=== PATIENT | male | born 1995 | race Caucasian/White ===

== ENCOUNTER 2016-09-26 13:43 | Emergency (ER) | payer SELFPAY ==
--- NOTE | 2016-09-26 13:46 | PDOC ---
History of Present Illness - General Chief Complaint: Vomiting/Diarrhea Stated Complaint: N/V/D Time Seen by Provider: 09/26/16 13:46 History Source: Patient Exam Limitations: No Limitations - History of Present Illness Travel History: No Initial Comments: 09/26/16 13:55 This is a 21 yo M who presents to the ER with a complaint of nausea, vomiting, diarrhea and abdominal pain His symptoms began last night at 9pm Symptoms have steadily worsened No travel No ill contacts Vomiting times/day (non bloody, non bilious) Diarrha times/day (non bloody, non mucoid) No recent antibiotic use Denies fevers or chills PMH: denies PSH: denies Meds: denies Family history: Ulcerative Colitis ALL: NKDA Social: (+) 1/2 ppd x 8 years, alcohol socially, marijuana GENERAL/CONSTITUTIONAL: No: fever, chills, weakness, loss of appetite. HEAD, EYES, EARS, NOSE AND THROAT: No: change in vision, ear pain, discharge, sore throat, throat swelling. CARDIOVASCULAR: No: chest pain, lightheadedness, palpitations, syncope RESPIRATORY: No: cough, shortness of breath, wheezing, hemoptysis, stridor. GASTROINTESTINAL: Yes: nausea, vomiting, diarrhea, abdominal pain No:rectal bleeding, constipation. GENITOURINARY: No: dysuria, hematuria, frequency, urgency, flank pain. MUSCULOSKELETAL: No: back pain, neck pain, joint pain, muscle swelling or pain SKIN AND BREASTS: No: lesions, pallor, rash or easy bruising. NEUROLOGIC: No: headache, vertigo, paresthesias, weakness ENDOCRINE: No: unexplained weight gain or loss HEMATOLOGIC/LYMPHATIC: No: anemia, easy bleeding, swelling nodes. GENERAL: The patient is in no acute distress. HEAD: Normal with no signs of trauma. EYES: PERRLA, EOMI, sclera anicteric, conjunctiva clear. ENT: Ears normal, nares patent, oropharynx clear without exudates. (+) Moist mucous membranes. NECK: Normal range of motion, supple without lymphadenopathy, JVD, or masses. LUNGS: Breath sounds equal, clear to auscultation bilaterally. No wheezes, and no crackles. HEART:Regular rate and rhythm, normal S1 and S2 without murmur, rub or gallop. ABDOMEN: Soft, (+) tender to palpation in the periumbilical area and epigastrium , (+)Ignacio's, (+) McBurneys, No guarding, no rebound. EXTREMITIES: Normal range of motion, no edema. No clubbing or cyanosis. No erythema, or tenderness. NEUROLOGICAL: Cranial nerves II through XII grossly intact. Normal speech. No focal neurological deficits. MUSCULOSKELETAL: Back non-tender to palpation, no CVA tenderness SKIN: Warm, Dry, normal turgor, no rashes or lesions noted. Past History - Past Medical History Allergies/Adverse Reactions: Allergies Allergy/AdvReac Type Severity Reaction Status Date / Time No Known Allergies Allergy Verified 09/26/16 13:44 Home Medications: Ambulatory Orders Hyoscyamine Odt [Levsin Odt -] 0.125 mg PO DAILY PRN #7 tab.rapdis 09/26/16 Ondansetron HCl [Zofran] 4 mg PO BID PRN #10 tablet 09/26/16 ED Treatment Course - LABORATORY CBC & Chemistry Diagram: 09/26/16 14:01 09/26/16 14:01 Medical Decision Making - Medical Decision Making 09/26/16 14:06 21 yo M presenting with nausea, vomiting, diarrhea DD: gastroenteritis, gastritis, cholelithiasis/cholecystitis (less likely), will send basic labs Will give Zofran Will give Pepcid Will give IV fluids Will re assess 09/26/16 14:43 Laboratory Tests 09/26/16 09/26/16 14:01 14:01 WBC 8.8 Hgb 15.3 Hct 43.3 Plt Count 189 BUN 15 Creatinine 0.8 Total Bilirubin 0.6 AST 26 ALT 17 Lipase 31 Pt improved Upper abdominal pain is gone No lower abdominal tenderness Will discharge to home follow up with PMD and with mother's fashion buyer Clinical Impression: gastroenteritis *DC/Admit/Observation/Transfer Diagnosis at time of Disposition: Gastroenteritis, Smoking 1/2 pack a day or less - Discharge Dispostion Disposition: HOME Condition at time of disposition: Stable Admit: No - Prescriptions Prescriptions: Hyoscyamine Odt [Levsin Odt -] 0.125 mg PO DAILY PRN #7 tab.rapdis PRN Reason: abdominal pain Ondansetron HCl [Zofran] 4 mg PO BID PRN #10 tablet PRN Reason: Nausea - Patient Instructions Printed Discharge Instructions: DI for Viral Gastroenteritis -- Adult, Gastroenteritis Diet Additional Instructions: [place] Thank you for coming in to the ER today Please take medications as prescribed Please follow up with your primary care physician or your mother's fashion buyer for further work up of Ulcerative Colitis Please monitor yourself for lower abdominal tenderness Return to the ER for any other concerns or complaints
[2016-09-26 13:50] VITALS: BP 126/70; PULSE 64; TEMP 98; BMI 20.7
[2016-09-26] MEDS ORDERED: ONDANSETRON 4 MG/2 ML VIAL IVPUSH ONE (13:53)
[2016-09-26] MEDS ORDERED: SODIUM CHLORIDE 1,000 ML IV STA ×2 (13:53→14:34)
[2016-09-26] MEDS ORDERED: FAMOTIDINE 20 MG/50 ML IVPB 50 ML IVPB ONE ×2 (14:07→14:11)
[2016-09-26 14:25] LABS: EOSINOPHIL 1.8 % (0-4.5); MCH 32.1 pg (25.7-33.7); MCHC 35.3 g/dl (32.0-35.9); MEAN CELL VOLUME 90.8 fl (80-96); MEAN PLT VOLUME 9.8 fl (7.5-11.1); NEUTROPHILS 70.9 % (42.8-82.8); PLATELET COUNT 189 K/MM3 (134-434); RDW 12.2 % (11.9-15.9); WHITE BLOOD COUNT 8.8 K/mm3 (4.0-10.0)
[2016-09-26] MEDS ORDERED: HYOSCYAMINE SULFATE 0.125 MG *ODT PO ONE (14:34)
[2016-09-26] MEDS ORDERED: HYOSCYAMINE SULFATE 0.125 MG *ODT ONE (14:36)
[2016-09-26 14:38] LABS: ALBUMIN 4.6 g/dl (3.5-5.0); ALK PHOS 74 U/L (32-92); ANION GAP 5 (8-16); BILIRUBIN,TOTAL 0.6 mg/dl (0.2-1.0); CALCIUM 9.6 mg/dl (8.4-10.2); CO2 25 mmol/L (22-28); CREATININE 0.8 mg/dl (0.6-1.3); GLUCOSE,RANDOM 91 mg/dl (74-106); SGOT/AST 26 U/L (10-42); SGPT/ALT 17 U/L (10-40); TOT PROT 7.1 g/dl (6.4-8.3)
== END 2016-09-26 15:40 | disposition home or self-care (01) ==
LOC: FER 13:43
PROC: 3E033GC Introduction of Other Therapeutic Substance into Peripheral Vein, Percutaneous Approach (ICD-10-PCS; principal; 2016-09-26)
PROC: 3E0337Z Introduction of Electrolytic and Water Balance Substance into Peripheral Vein, Percutaneous Approach (ICD-10-PCS; 2016-09-26)
DX: K52.9 Noninfective gastroenteritis and colitis, unspecified (principal); F17.210 Nicotine dependence, cigarettes, uncomplicated
CPT/HCPCS: 36415; 80053; 83690; 85025; 99282-25

== ENCOUNTER 2017-05-05 04:36 | Emergency (ER) | payer SELFPAY ==
[2017-05-05 04:44] VITALS: BP 136/73; PULSE 70; TEMP 97.5; BMI 21.5
[2017-05-05] MEDS ORDERED: ONDANSETRON *ODT* 4 MG TABLET SL ONE (04:57)
[2017-05-05] MEDS ORDERED: ONDANSETRON *ODT* 4 MG TABLET ONE (04:57)
[2017-05-05] MEDS ORDERED: HEMOQUE TEST 1 EACH EACH ONE (04:57)
--- NOTE | 2017-05-06 01:05 | PDOC ---
History of Present Illness - General Chief Complaint: Nausea/Vomiting Stated Complaint: NAUSEA,STRESS AT HOME X 2 DAYS - History of Present Illness Initial Comments: This 21-year-old man with no previous significant medical history presents with a several day history of nausea with retching. The patient also describes difficulty sleeping in the last few days. Patient describes having a large amount of stress and his . He and his family are currently facing eviction from their home; he also has had some difficulty pain his bills. He is currently employed ([employer]) ; he currently has no insurance but insurance coverage will start in approximately of a month. He has had no fever or chills. He denies diarrhea/severe abdominal pain. He states that he has had several month history of drinking large amounts of fluids and urinating frequently. No dysuria or hematuria. No family history of diabetes mellitus. He states that he has a strong family history of "sensitive stomach", meaning that during times of stress, he and his family members have abdominal discomfort and frequent bowel movements. Patient is a one pack per day smoker; he denies alcohol or other recreational drug use Past History - Past Medical History Allergies/Adverse Reactions: Allergies Allergy/AdvReac Type Severity Reaction Status Date / Time No Known Allergies Allergy Verified 05/05/17 04:37 Home Medications: Ambulatory Orders Hyoscyamine Sulfate 0.125 mg SL TID PRN #12 tab.subl 05/05/17 Other medical history: DENIES - Suicide/Smoking/Psychosocial Hx Smoking History: Current every day smoker Have you smoked in the past 12 months: Yes Number of Cigarettes Smoked Daily: 20 Information on smoking cessation initiated: Yes 'Breaking Loose' booklet given: 05/05/17 Hx Alcohol Use: Yes (OCCAS) Drug/Substance Use Hx: Yes (WEED) Substance Use Type: None, Marijuana Review of Systems - Review of Systems Able to Perform ROS?: Yes Comments:: 12 point review of systems is negative except for what is noted in the history of present illness *Physical Exam - Vital Signs Last Vital Signs Temp Pulse Resp BP Pulse Ox 97.5 F L 70 16 136/73 100 05/05/17 04:39 05/05/17 04:39 05/05/17 04:39 05/05/17 04:39 05/05/17 04:39 - Physical Exam Comments: GENERAL: Young adult male, appearing anxious but in no acute distress HEAD: Normal with no signs of trauma. EYES: PERRLA, EOMI, sclera anicteric, conjunctiva clear. ENT: Ears normal, nares patent, oropharynx clear without exudates. Dry mucous membranes. NECK: Normal range of motion, supple without lymphadenopathy, JVD, or masses. LUNGS: Breath sounds equal, clear to auscultation bilaterally. No wheezes, and no crackles. HEART:Regular rate and rhythm, normal S1 and S2 without murmur, rub or gallop. ABDOMEN:.normal bowel sounds No guarding,tenderness or rebound.No masses No distention. EXTREMITIES: Normal range of motion, no edema. No clubbing or cyanosis. No erythema, or tenderness. NEUROLOGICAL: Cranial nerves II through XII grossly intact. Normal speech. No focal neurological deficits. MUSCULOSKELETAL: Back non-tender to palpation, no CVA tenderness SKIN: Warm, Dry, normal turgor, no rashes or lesions noted. Random fingerstick glucose 140 ED Treatment Course - Medications Given in the ED: ED Medications Discontinued Medications Generic Name Dose Route Start Last Admin Trade Name Freq PRN Reason Stop Dose Admin Ondansetron HCl 4 mg 05/05/17 04:57 05/05/17 05:04 Zofran Odt - SL 05/05/17 04:58 4 mg ONCE ONE Administration Medical Decision Making - Medical Decision Making As noted above, otherwise healthy 21-year-old man undergoing significant stress in his life, presents with abdominal discomfort/nausea with retching but no vomiting or diarrhea. Exam is normal with no evidence of dehydration; abdomen is soft and nontender. Patient describes family history of irritable bowel syndrome. His clinical presentation is also consistent with this diagnosis. Patient currently does not have a doctor pending his insurance coverage. He will be given referral information for [facility] practice in [place] (where patient resides). Patient informed that this practice utilizes a sliding scale for payment. He should follow-up with them in the near future He should return to the ER if he has severe vomiting or worsening abdominal pain. Also, patient should return here if he has persistent fever. Otherwise, prescription for hyoscyamine sublingual 0.125 mg sent to his pharmacy, which he should use for abdominal discomfort *DC/Admit/Observation/Transfer Diagnosis at time of Disposition: IRRITABLE BOWEL - Discharge Dispostion Disposition: HOME Condition at time of disposition: Stable - Prescriptions Prescriptions: Hyoscyamine Sulfate 0.125 mg SL TID PRN #12 tab.subl PRN Reason: Pain - Referrals Referrals: [facility] [Provider Group] - Patient Instructions Printed Discharge Instructions: Tips for Reducing Stress in Your Life, Irritable Bowel Syndrome, Smoking Cessation - Post Discharge Activity
== END 2017-05-05 05:22 | disposition home or self-care (01) ==
LOC: FER 04:36
DX: K58.9 Irritable bowel syndrome, unspecified (principal); F17.210 Nicotine dependence, cigarettes, uncomplicated
CPT/HCPCS: 99281-25

== ENCOUNTER 2017-08-27 04:09 | Emergency (ER) | payer BC ==
[2017-08-27 05:07] VITALS: BP 140/72; PULSE 83; BMI 20.7
[2017-08-27 05:12] VITALS: TEMP 97.9
--- NOTE | 2017-08-27 06:08 | PDOC ---
History of Present Illness - General History Source: Patient <Cj Delgado - Last Filed: 08/27/17 06:09> - General History Source: Patient Exam Limitations: No Limitations - History of Present Illness Initial Comments: 08/27/17 06:19 The patient is a 22 year old male with a significant PMH of gastritis and cigarette use who presents to the emergency department with an episode of abdominal pain and diarrhea earlier today. The patient describes the abdominal pain as a burning sensation with no radiation, no alleviating or aggravating symptoms. He reports his abdominal pain has resolved upon presentation. The patient denies chest pain, shortness of breath, headache and dizziness. Denies fever, chills, nausea, vomit, and constipation. Denies dysuria, frequency, urgency and hematuria. Allergies: NKA Past surgical history: None reported. Social history: Current everyday smoker (20 cigs/day). No reported alcohol or drug use. PCP: None reported. <Ulisses Millard - Last Filed: 08/27/17 06:19> - General Chief Complaint: Pain Stated Complaint: ABD PAIN Time Seen by Provider: 08/27/17 06:05 Past History - Past Medical History COPD: No - Suicide/Smoking/Psychosocial Hx Smoking History: Current every day smoker Have you smoked in the past 12 months: Yes Number of Cigarettes Smoked Daily: 20 If you are a former smoker, when did you quit?: no Cigars Per Day: 20 Information on smoking cessation initiated: No 'Breaking Loose' booklet given: 05/05/17 Hx Alcohol Use: No Drug/Substance Use Hx: No Substance Use Type: None, Marijuana <Cj Delgado - Last Filed: 08/27/17 06:09> <Ulisses Millard - Last Filed: 08/27/17 06:19> - Past Medical History Allergies/Adverse Reactions: Allergies Allergy/AdvReac Type Severity Reaction Status Date / Time No Known Allergies Allergy Verified 08/27/17 05:05 Home Medications: Ambulatory Orders NK [No Known Home Medication] 08/27/17 Review of Systems - Review of Systems Able to Perform ROS?: Yes Comments:: 08/27/17 06:19 CONSTITUTIONAL: Absent: fever, chills, diaphoresis, generalized weakness, malaise, loss of appetite HEENT: Absent: rhinorrhea, nasal congestion, throat pain, throat swelling, difficulty swallowing, mouth swelling, ear pain, eye pain, visual Changes CARDIOVASCULAR: Absent: chest pain, syncope, palpitations, irregular heart rate, lightheadedness , peripheral edema RESPIRATORY: Absent: cough, shortness of breath, dyspnea with exertion, orthopnea, wheezing, stridor, hemoptysis GASTROINTESTINAL: (+) Abdominal pain (resolved). (+) Diarrhea. Absent: abdominal distension, nausea, vomiting, constipation, melena, hematochezia GENITOURINARY: Absent: dysuria, frequency, urgency, hesitancy, hematuria, flank pain, genital pain MUSCULOSKELETAL: Absent: myalgia, arthralgia, joint swelling SKIN: Absent: rash, itching, pallor HEMATOLOGIC/IMMUNOLOGIC: Absent: easy bleeding, easy bruising, lymphadenopathy, frequent infections ENDOCRINE: Absent: unexplained weight gain, unexplained weight loss, heat intolerance, cold intolerance NEUROLOGIC: Absent: headache, focal weakness or paresthesias, dizziness, unsteady gait, seizure, mental status changes, bladder or bowel incontinence PSYCHIATRIC: Absent: anxiety, depression, suicidal or homicidal ideation, hallucinations. <Ulisses Millard - Last Filed: 08/27/17 06:19> *Physical Exam - Vital Signs Last Vital Signs Temp Pulse Resp BP Pulse Ox 97.9 F 83 14 140/72 100 08/27/17 05:11 08/27/17 05:05 08/27/17 05:05 08/27/17 05:05 08/27/17 05:05 <Cj Delgado - Last Filed: 08/27/17 06:09> - Vital Signs Last Vital Signs Temp Pulse Resp BP Pulse Ox 97.9 F 83 14 140/72 100 08/27/17 05:11 08/27/17 05:05 08/27/17 05:05 08/27/17 05:05 08/27/17 05:05 - Physical Exam Comments: 08/27/17 06:19 GENERAL: Well developed, well nourished. Awake and alert. No acute distress. HEENT: Normocephalic, atraumatic. PERRLA, EOMI. No conjunctival pallor. Sclera are non- icteric. Moist mucous membranes. Oropharynx is clear. NECK: Supple. Full ROM. No JVD. Carotid pulses 2+ and symmetric, without bruits. No thyromegaly. No lymphadenopathy. CARDIOVASCULAR: Regular rate and rhythm. No murmurs, rubs, or gallops. Distal pulses are 2+ and symmetric. PULMONARY: No evidence of respiratory distress. Lungs clear to auscultation bilaterally. No wheezing, rales or rhonchi. ABDOMINAL: Soft. Non-tender. Non-distended. No rebound or guarding. No organomegaly. Normoactive bowel sounds. MUSCULOSKELETAL Normal range of motion at all joints. No bony deformities or tenderness. No CVA tenderness. EXTREMITIES: No cyanosis. No clubbing. No edema. No calf tenderness. SKIN: Warm and dry. Normal capillary refill. No rashes. No jaundice. NEUROLOGICAL: Alert, awake, appropriate. Cranial nerves 2-12 intact. No deficits to light touch and temperature in face, upper extremities and lower extremities. No motor deficits in the in face, upper extremities and lower extremities. Normoreflexic in the upper and lower extremities. Normal speech. Toes are downgoing bilaterally. Gait is normal without ataxia. PSYCHIATRIC: Cooperative. Good eye contact. Appropriate mood and affect. <Ulisses Millard - Last Filed: 08/27/17 06:19> Medical Decision Making - Medical Decision Making 08/27/17 06:11 Dr. Delgado: The scribe's documentation has been prepared under my direction and personally reviewed by me in its entirery. I confirm that the note above accurately reflects all work, treatment, procedures, and medical decision making performed by me. <Cj Delgado - Last Filed: 08/27/17 06:09> *DC/Admit/Observation/Transfer - Discharge Dispostion Admit: No <Cj Delgado - Last Filed: 08/27/17 06:09> - Attestations Scribe Attestion: 08/27/17 06:19 Documentation prepared by Ulisses Millard, acting as spanish medical interpreter for Cj Delgado DO. <Ulisses Millard - Last Filed: 08/27/17 06:19> Diagnosis at time of Disposition: Abdominal pain Qualifiers: Abdominal location: generalized Qualified Code(s): R10.84 - Generalized abdominal pain - Discharge Dispostion Disposition: HOME Condition at time of disposition: Stable - Patient Instructions Printed Discharge Instructions: DI for Abdominal Pain-Adult Additional Instructions: avoid spicy food. avoid smoking. Return if any problems
[2017-08-27] MEDS ORDERED: PANTOPRAZOLE 40 MG TABLET (FP) PO ONE (06:09)
[2017-08-27] MEDS ORDERED: PANTOPRAZOLE 40 MG TABLET (FP) ONE (06:42)
== END 2017-08-27 06:46 | disposition home or self-care (01) ==
LOC: JER 04:09
DX: R10.84 Generalized abdominal pain (principal); F17.210 Nicotine dependence, cigarettes, uncomplicated
CPT/HCPCS: 99283-25

== ENCOUNTER 2019-01-24 08:26 | Emergency (ER) | payer OTHER ==
[2019-01-24 08:30] VITALS: BP 120/86; PULSE 72; TEMP 98.2; BMI 21.6
[2019-01-24] MEDS ORDERED: TETRACAINE 0.5% HCL 0.6ML DROPPER.BOTTLE OD ONE (08:37)
[2019-01-24] MEDS ORDERED: FLUORESCEIN NA 1 EA STRIP ONE (08:37)
[2019-01-24] MEDS ORDERED: TETRACAINE 0.5% OPHTH SOLN 2 ML BOTTLE ONE (08:37)
[2019-01-24] MEDS ORDERED: FLUORESCEIN NA 1 EA STRIP OD ONE (08:38)
--- NOTE | 2019-01-24 08:52 | PDOC ---
History of Present Illness - General Chief Complaint: Eye Problem Stated Complaint: EYES ITCHING Time Seen by Provider: 01/24/19 08:27 - History of Present Illness Initial Comments: 01/24/19 08:49 23 years old with no significant past medical history presents to the emergency department with 2-3 week history of bilateral conjunctivitis with some crusting discharge each morning. Symptoms started possibly after exposure to dust but 2- 3 weeks ago has since not been exposed to the same area 10 no visual changes no fever no chills no headache symptoms are moderate persistent concent no exacerbating or alleviating factors. Past History - Past Medical History Allergies/Adverse Reactions: Allergies Allergy/AdvReac Type Severity Reaction Status Date / Time No Known Allergies Allergy Verified 01/24/19 08:27 Home Medications: Ambulatory Orders Polymyxin B Sulfate/Tmp [Polytrim Opthalmic Solution -] 1 drop OP QID 7 Days #1 bottle 01/24/19 COPD: No - Suicide/Smoking/Psychosocial Hx Smoking History: Current every day smoker Have you smoked in the past 12 months: Yes Number of Cigarettes Smoked Daily: 10 If you are a former smoker, when did you quit?: no Cigars Per Day: 20 Information on smoking cessation initiated: Yes 'Breaking Loose' booklet given: 05/05/17 Hx Alcohol Use: No Drug/Substance Use Hx: No Substance Use Type: None, Marijuana Review of Systems - Review of Systems Comments:: 01/24/19 08:50 ROS: A complete review of 10 out of 10 review of systems is taken and is negative apart from what is previously mentioned below and in the HPI. *Physical Exam - Vital Signs Last Vital Signs Temp Pulse Resp BP Pulse Ox 98.2 F 72 18 120/86 100 01/24/19 08:27 01/24/19 08:27 01/24/19 08:27 01/24/19 08:27 01/24/19 08:27 - Physical Exam Comments: 01/24/19 08:50 Vitals: Triage Vital signs reviewed General Appearance: no acute distress, well nourished well developed, Head: Atraumatic, Eyes: Pupils equal reactive round, extraocular movement intact bilateral conjunctival injection. No fluorescein uptake on fluorescein exam Ears: TM's normal bilaterally; Nose: Nares patent bilaterally;no nasal congestion Neck: Supple;No Nucal rigidity Psych: normal mood, normal affect Medical Decision Making - Medical Decision Making 01/24/19 08:52 History and examination most consistent with ALLERGIC conjunctivitis however given crusting and discharge we'll place patient on 1 week course of any bacterial ophthalmic drops as well as antihistamine drops and ALLERGY pill Patient will follow up with ophthalmology within 1 week. Findings, the need for follow-up and strict return instructions discussed with patient. *DC/Admit/Observation/Transfer Diagnosis at time of Disposition: Acute allergic conjunctivitis Qualifiers: Laterality: bilateral Qualified Code(s): H10.13 - Acute atopic conjunctivitis, bilateral - Discharge Dispostion Disposition: HOME Condition at time of disposition: Stable Decision to Admit order: No - Referrals Referrals: Tam Braun MD [Staff Physician] - - Patient Instructions Printed Discharge Instructions: DI for Conjunctivitis Additional Instructions: Antibiotic eyedrop as prescribed. Also take Zaditor eyedrops as directed on package. Marcella as directed twice a day for the next week. Follow-up with ophthalmology within one week. Return to the emergency department for any severe worsening symptoms or for any concerns. - Post Discharge Activity
== END 2019-01-24 09:02 | disposition home or self-care (01) ==
LOC: FER 08:26
DX: H10.13 Acute atopic conjunctivitis, bilateral (principal); F17.210 Nicotine dependence, cigarettes, uncomplicated
CPT/HCPCS: 99281-25

== ENCOUNTER 2022-02-23 11:45 | Emergency (ER) | payer OTHER ==
[2022-02-23 11:52] VITALS: BP 109/84; PULSE 73; RESP 18; TEMP 98; BMI 20.9
[2022-02-23] MEDS ORDERED: TETRACAINE 0.5% OPHTH SOLN 2 ML BOTTLE ONE (12:34)
[2022-02-23] MEDS ORDERED: FLUORESCEIN NA 1 EA STRIP ONE (12:34)
[2022-02-23] MEDS ORDERED: CIPROFLOXACIN HCL 0.3% OPHTH 2.5ML BOTTLE ONE (12:44)
[2022-02-23] MEDS ORDERED: CIPROFLOXACIN 0.3% EYE DROPS 5 ML BOTTLE OS SCH (12:45)
== END 2022-02-23 12:58 | disposition home or self-care (01) ==
LOC: FER 11:45
DX: H10.32 Unspecified acute conjunctivitis, left eye (principal); H57.12 Ocular pain, left eye
CPT/HCPCS: 99283-25

== ENCOUNTER 2023-04-22 11:08 | Emergency (ER) | payer OTHER ==
[2023-04-22 11:26] VITALS: BP 120/68; PULSE 82; RESP 16; TEMP 99.4; BMI 20.9
== END 2023-04-22 12:10 | disposition home or self-care (01) ==
LOC: FER 11:08
DX: R05.9 Cough, unspecified (principal); M79.10 Myalgia, unspecified site; B34.9 Viral infection, unspecified; Z20.822 Contact with and (suspected) exposure to COVID-19
CPT/HCPCS: 0241U-QW; 99283-25